=== PATIENT | female | born 1995 | race Caucasian/White ===

== ENCOUNTER 2022-01-12 23:19 | Emergency (ER) | payer OTHER ==
[~2022-01-12] VITALS: Ht 165.1 cm; Wt 44.5 kg
[2022-01-12 23:27] VITALS: TEMP 97.4
[2022-01-13] VITALS: BP 124/78; PULSE 60
== END 2022-01-13 | disposition home or self-care (01) ==
LOC: COL.ER 23:19
DX: S61.212A Laceration without foreign body of right middle finger without damage to nail, initial encounter (principal); S61.214A Laceration without foreign body of right ring finger without damage to nail, initial encounter; Z28.310 Unvaccinated for COVID-19; W26.8XXA Contact with other sharp object(s), not elsewhere classified, initial encounter; Y92.59 Other trade areas as the place of occurrence of the external cause; Y99.0 Civilian activity done for income or pay

== ENCOUNTER 2022-09-28 01:56 | Emergency (ER) | payer SELFPAY ==
[~2022-09-28] VITALS: Ht 162.6 cm; Wt 44.1 kg
[2022-09-28 02:31] VITALS: BP 120/87; PULSE 91; TEMP 98.4
== END 2022-09-28 02:34 | disposition home or self-care (01) ==
LOC: COL.ER 01:56
DX: S61.002A Unspecified open wound of left thumb without damage to nail, initial encounter (principal); W26.0XXA Contact with knife, initial encounter; Y92.59 Other trade areas as the place of occurrence of the external cause; Y99.0 Civilian activity done for income or pay